=== PATIENT | female | born 1945 | race Caucasian/White ===

== ENCOUNTER 2019-03-25 07:09 | Day surgery (SDC) | payer MEDICARE ==
[~2019-03-25] VITALS: Ht 167.6 cm; Wt 76.7 kg
[~2019-03-25 07:09] MED LIST: NS 1,000 ML IV ONE
[2019-03-25] MEDS ORDERED: PROPOFOL 200 MG/20 ML VIAL As Ordered ONE (07:12)
[2019-03-25] MEDS ORDERED: LIDOCAINE 2% INJ 100 MG/5 ML SDV (FOR ANES.) As Ordered ONE (07:12)
[2019-03-25] MEDS ORDERED: CITRTAB18 PO (07:27)
[2019-03-25] MEDS ORDERED: VITAD1000T PO (07:27)
[2019-03-25] MEDS ORDERED: CENT1TAB PO (07:27)
[2019-03-25] MEDS ORDERED: CIDA500T2 PO (07:27)
[2019-03-25] MEDS ORDERED: FISH1000 PO (07:27)
--- NOTE | 2019-03-25 08:48 | ROOR ---
Patient Name: Anna Davidson Procedure Date: 03/25/2019 8:17 AM Date of : 1945 Age: 74 Room: [facility] Gender: Female Note Status: Finalized Procedure: Total Colonoscopy to Cecum + Cold Snare Polypectomy Indications: Screening for colorectal malignant neoplasm Providers: Rodolfo Rodriguez MD Referring MD: Cynthia Griffin NP Requesting Provider: Medicines: Monitored Anesthesia Care Complications: No immediate complications. Procedure: Pre-Anesthesia Assessment: - The heart rate, respiratory rate, oxygen saturations, blood pressure, adequacy of pulmonary ventilation, and response to care were monitored throughout the procedure. The Colonoscope was introduced through the anus and advanced to the cecum, identified by appendiceal orifice and ileocecal valve. The colonoscopy was performed without difficulty. The patient tolerated the procedure well. The quality of the bowel preparation was excellent. Findings: The perianal and digital rectal examinations were normal. Non-bleeding internal hemorrhoids were found during retroflexion. The hemorrhoids were small and Grade I (internal hemorrhoids that do not prolapse). Multiple small and large-mouthed diverticula were found in the entire colon. A small polyp was found at 60 cm proximal to the anus. The polyp was sessile. The polyp was removed with a cold snare. Resection and retrieval were complete. The exam was otherwise without abnormality on direct and retroflexion views. Impression: - Non-bleeding internal hemorrhoids. - Diverticulosis in the entire examined colon. - One small polyp at 60 cm proximal to the anus, removed with a cold snare. Resected and retrieved. - The examination was otherwise normal on direct and retroflexion views. - The exam was otherwise normal to the cecum. Recommendation: - Patient has a contact number available for emergencies. The signs and symptoms of potential delayed complications were discussed with the patient. Return to normal activities tomorrow. Written discharge instructions were provided to the patient. - High fiber diet. - Discharge patient to home. - Continue present medications. - Await pathology results. - Telephone GI clinic for pathology results in 1 week. - Repeat colonoscopy for symptoms only. - Return to referring physician. - The findings and recommendations were discussed with the patient's family. Rodolfo Rodriguez MD Rodolfo Rodriguez MD 03/25/2019 8:47:23 AM Electronically signed by Rodolfo Rodriguez MD Number of Addenda: 0 Note Initiated On: 03/25/2019 8:17 AM Estimated Blood Loss: Estimated blood loss: none.
[2019-03-25 09:10] VITALS: BP 143/83
== END 2019-03-25 09:20 | disposition home or self-care (01) ==
LOC: M OPP 07:09
PROVIDERS: ATTEND Internal Medicine Gastroenterology
DX: D12.6 Benign neoplasm of colon, unspecified (principal); K64.0 First degree hemorrhoids; K57.30 Diverticulosis of large intestine without perforation or abscess without bleeding; Z12.11 Encounter for screening for malignant neoplasm of colon

== ENCOUNTER → 2021-06-02 | Outpatient (CLI) | payer MEDICARE ==
[~2021-06-02] MED LIST changes: +CENT1TAB PO; +CHOL100029 PO; +CIDA500T2 PO; +CITRTAB18 PO; +FISH1000 PO; -NS 1,000 ML IV ONE
== END ==
LOC: M WHC 16:14
PROVIDERS: ATTEND Nurse Practitioner Adult Health
DX: Z12.31 Encounter for screening mammogram for malignant neoplasm of breast (principal)

== ENCOUNTER → 2021-08-11 | Outpatient (REF) | payer MEDICARE ==
[2021-08-14 12:46] LABS: TOTAL PROTEIN 7.2 GM/DL (6.4-8.2)
[2021-08-15 11:03] LABS: ALBUMIN 4.38 GM/DL (3.29-5.55); ALBUMIN % 60.9 % (55.8-66.1); ALPHA-1-GLOBULIN % 3.5 % (2.9-4.9); ALPHA-1-GLOBULINS 0.25 GM/DL (0.17-0.41); ALPHA-2-GLOBULINS 0.75 GM/DL (0.42-0.99); ALPHA-2-GLOBULINS % 10.4 % (7.1-11.8); BETA-1-GLOBULINS 0.36 GM/DL (0.28-0.60); BETA-2-GLOBULINS 0.25 GM/DL (0.19-0.55); BETA-2-GLOBULINS % 3.5 % (3.2-6.5); GAMMA GLOBULIN % 16.7 % (11.1-18.8)
[2021-08-15 11:13] LABS: IMMUNOTYPING SERUM IGG ABNORMAL (NORMAL); IMMUNOTYPING SERUM KAPPA ABNORMAL (NORMAL)
[2021-08-15 17:09] LABS: FREE KAPPA LIGHT CHAINS SERUM 170.1 mg/L (3.3-19.4); FREE LAMBDA LIGHT CHAINS SERUM 11.6 mg/L (5.7-26.3); KAPPA/LAMBDA RATIO SERUM 14.66 (0.26-1.65)
== END ==
LOC: M LAB REF 11:25
PROVIDERS: ATTEND Internal Medicine
DX: G60.9 Hereditary and idiopathic neuropathy, unspecified (principal)

== ENCOUNTER → 2021-09-15 | Outpatient (CLI) | payer MEDICARE ==
--- NOTE | 2021-09-15 16:05 | REP ---
INDICATION: Dense breasts. COMPARISON: Screening mammogram, 06/02/2021. TECHNIQUE: Ultrasound evaluation of both breasts was performed. FINDINGS: Right breast: Retroareolar, 6 x 5 x 3 mm, oval, circumscribed, parallel, hypoechoic mass with no posterior features. 8 o'clock, 9 x 6 x 5 mm, intramammary lymph node. Left breast: There are no sonographically identifiable abnormalities in the left breast. IMPRESSION: Probably benign mass in the right breast. RECOMMENDATION: Six-month follow-up ultrasound evaluation of the right breast. <Electronically signed by Daljit Redmond > 09/15/21 0038
== END ==
LOC: M WHC 15:02
PROVIDERS: ATTEND Nurse Practitioner Adult Health
DX: N64.89 Other specified disorders of breast (principal)

== ENCOUNTER → 2021-12-28 | Outpatient (CLI) | payer MEDICARE | LOC: M RAD 15:04 | PROVIDERS: ATTEND Internal Medicine Hematology & Oncology | DX: M89.9 Disorder of bone, unspecified (principal) ==

== ENCOUNTER → 2022-01-04 | Outpatient (CLI) | payer MEDICARE ==
[~2022-01-04] MED LIST changes: +LIDOCAINE 1% MDV 20ML VIAL As Ordered ONE
[2022-01-04 13:29] LABS: BASO # 0.1 10^3/uL (0.0-0.2); BASO % 1.3 % (0.0-1.0); EOS # 0.1 10^3/uL (0.0-0.5); EOS % 1.3 % (0.0-3.0); HEMATOCRIT 39.4 % (36.0-47.0); HEMOGLOBIN 13.4 g/dl (12.0-15.5); LYMPH # 1.6 10^3/uL (1.5-5.0); LYMPH % 34.5 % (24.0-44.0); MEAN CORPUSCULAR HEMOGLOBIN 31.8 pg (27.0-33.0); MEAN CORPUSCULAR VOLUME 93.6 fl (80.0-96.0); MONO # 0.5 10^3/uL (0.0-0.8); MONO % 10.9 % (2.0-8.0); NEUTROPHILS # 2.3 10^3/uL (1.5-8.5); NEUTROPHILS % 51.8 % (36.0-66.0); PLATELET COUNT, AUTOMATED 281 10^3/uL (150-450); RED BLOOD COUNT 4.21 10^6/uL (4.00-5.40); WHITE BLOOD COUNT 4.5 10^3/uL (4.0-10.0)
[2022-01-04 13:55] VITALS: BP 144/75
== END ==
LOC: M IRPRO 11:46
PROVIDERS: ATTEND Internal Medicine Hematology & Oncology
DX: D47.2 Monoclonal gammopathy (principal)

== ENCOUNTER → 2022-01-05 | Outpatient (CLI) | payer MEDICARE ==
[~2022-01-05] MED LIST changes: -LIDOCAINE 1% MDV 20ML VIAL As Ordered ONE
== END ==
LOC: M PLAIMG 13:55
PROVIDERS: ATTEND Internal Medicine Hematology & Oncology
DX: M19.90 Unspecified osteoarthritis, unspecified site (principal); C90.00 Multiple myeloma not having achieved remission

== ENCOUNTER → 2022-08-07 | Outpatient (CLI) | payer MEDICARE ==
[~2022-08-07] MED LIST changes: +VITA100093 PO
== END ==
LOC: M WHC 13:18
PROVIDERS: ATTEND Nurse Practitioner Adult Health
DX: Z12.31 Encounter for screening mammogram for malignant neoplasm of breast (principal)

== ENCOUNTER → 2023-02-11 | Outpatient (CLI) | payer MEDICARE ==
[~2023-02-11] MED LIST changes: +TUME1CAP PO
== END ==
LOC: M RAD 14:00
PROVIDERS: ATTEND Internal Medicine
DX: R55 Syncope and collapse (principal)

== ENCOUNTER → 2023-08-19 | Outpatient (CLI) | payer MEDICARE | LOC: M WHC 14:38 | PROVIDERS: ATTEND Internal Medicine | DX: Z12.31 Encounter for screening mammogram for malignant neoplasm of breast (principal) ==

== ENCOUNTER → 2024-09-03 | Outpatient (CLI) | payer MEDICARE ==
[~2024-09-03] MED LIST changes: +BIOT1CAP2 PO; +VITA-172 PO
== END ==
LOC: M WHC 13:32
PROVIDERS: ATTEND Internal Medicine
DX: Z12.31 Encounter for screening mammogram for malignant neoplasm of breast (principal)

== ENCOUNTER → 2024-09-30 | Outpatient (CLI) | payer MEDICARE | LOC: M WHC 13:33 | PROVIDERS: ATTEND Internal Medicine | DX: R92.8 Other abnormal and inconclusive findings on diagnostic imaging of breast (principal) | CPT/HCPCS: 77065; G0279 ==

== ENCOUNTER 2024-12-02 09:11 | Day surgery (SDC) | payer MEDICARE ==
[~2024-12-02] VITALS: Ht 165.1 cm; Wt 77.1 kg
[2024-12-02] MEDS ORDERED: propofoL 200 MG/20 ML VIAL As Ordered ONE (10:10)
[2024-12-02] MEDS ORDERED: LIDOCAINE 2% 100MG/5ML SDV (FOR ANES.) As Ordered ONE (10:10)
[2024-12-02 12:00] VITALS: BP 120/72; O2SAT 96
== END 2024-12-02 12:03 | disposition home or self-care (01) ==
LOC: M OPP 09:11
PROVIDERS: ATTEND Internal Medicine Gastroenterology
DX: Z86.0100 Personal history of colon polyps, unspecified (principal); K64.0 First degree hemorrhoids; D12.6 Benign neoplasm of colon, unspecified; K57.30 Diverticulosis of large intestine without perforation or abscess without bleeding; M19.90 Unspecified osteoarthritis, unspecified site; R32 Unspecified urinary incontinence; Z79.899 Other long term (current) drug therapy

== ENCOUNTER → 2025-10-08 | Outpatient (CLI) | payer MEDICARE | LOC: M WHC 12:22 | PROVIDERS: ATTEND Internal Medicine | DX: Z12.31 Encounter for screening mammogram for malignant neoplasm of breast (principal) ==